=== PATIENT | male | born 1990 | race Caucasian/White ===

== ENCOUNTER 2023-04-19 15:11 | Emergency (ER) | payer SELFPAY ==
[~2023-04-19] VITALS: Ht 175.3 cm; Wt 62.1 kg
[2023-04-19 15:35] VITALS: BP 131/90
[2023-04-19] MEDS ORDERED: ERYT.5TO RIGHTEYE (16:50)
[2023-04-19] MEDS ORDERED: OCUFLOX510 RIGHTEYE (16:50)
== END 2023-04-19 17:22 | disposition home or self-care (01) ==
LOC: ER 15:11
DX: T15.01XA Foreign body in cornea, right eye, initial encounter (principal); X58.XXXA Exposure to other specified factors, initial encounter; Y99.0 Civilian activity done for income or pay
CPT/HCPCS: 65222; 99283-25; A9270